=== PATIENT | female | born 1985 | race Caucasian/White ===

== ENCOUNTER 2016-11-10 13:47 | Emergency (ER) | payer MEDICAID ==
[2012-03-30 23:46] VITALS: BMI 30.1
== END 2016-11-10 17:22 | disposition home or self-care (01) ==
LOC: D.ER 13:47
DX: S39.012A Strain of muscle, fascia and tendon of lower back, initial encounter (principal); X58.XXXA Exposure to other specified factors, initial encounter; M54.31 Sciatica, right side; K21.9 Gastro-esophageal reflux disease without esophagitis

== ENCOUNTER 2017-05-29 09:08 | Emergency (ER) | payer MEDICAID ==
[2012-03-30 23:46] VITALS: BMI 30.1
== END 2017-05-29 09:52 | disposition home or self-care (01) ==
LOC: D.ER 09:08
DX: J01.90 Acute sinusitis, unspecified (principal); K21.9 Gastro-esophageal reflux disease without esophagitis

== ENCOUNTER 2018-06-18 20:32 | Emergency (ER) | payer MEDICAID ==
[~2018-06-18] VITALS: Ht 160 cm; Wt 94.5 kg
[2018-06-18 20:36] VITALS: Ht 160 cm; Wt 94.5 kg
[2018-06-18] MEDS ORDERED: ZPAK PO (21:58)
[2018-06-18] MEDS ORDERED: ALBUTEROL SULF8.5 GM INH (21:58)
[2018-06-18] MEDS ORDERED: TYLENOL W/CODEI1 TAB PO (21:58)
[2018-06-18 22:34] VITALS: BP 117/69
== END 2018-06-18 22:34 | disposition home or self-care (01) ==
LOC: D.ER 20:32
DX: J40 Bronchitis, not specified as acute or chronic (principal)

== ENCOUNTER 2018-11-19 21:15 | Emergency (ER) | payer MEDICAID ==
[~2018-11-19] VITALS: Ht 160 cm; Wt 86.4 kg
[~2018-11-19 21:15] MED LIST: ALBUTEROL SULF8.5 GM INH; TYLENOL W/CODEI1 TAB PO; ZPAK PO
[2018-11-19 21:22] VITALS: Ht 160 cm; Wt 86.4 kg
[2018-11-19 22:29] LABS: BASOPHILS 0.4 % (0-2); EOSINOPHILS 0.9 % (0-7); HEMATOCRIT 37.7 % (36.0-48.0); HEMOGLOBIN 12.8 g/dL (12-16); IMMATURE GRANULOCYTES 0.1 % (0-5); LYMPHOCYTES 16.5 % (15-50); MCV 85.3 fL (80.0-100.0); MEAN PLATELET VOLUME 11.7 fL (7.4-10.4); MONOCYTES 7.3 % (2-11); NEUTROPHILS 74.8 % (40-80); RBC 4.42 10x6/uL (4.00-5.40); RDW 12.8 % (11.5-14.5); WBC 6.7 10x3/uL (4.8-10.8)
[2018-11-19 22:43] LABS: PLATELET COUNT 202 10x3/uL (130-400)
[2018-11-19 22:46] LABS: APTT 25.7 SECONDS (22.8-39.4); INR 0.98 (0.85-1.17); PROTIME 12.5 SECONDS (11.6-15.0)
[2018-11-19 22:52] LABS: ALBUMIN 4.3 g/dL (3.4-5.0); ALKALINE PHOSPHATASE 64 U/L (46-116); ALT (SGPT) 45 U/L (10-68); BILIRUBIN - TOTAL 0.37 mg/dL (0.2-1.3); CALC OSMOLALITY 285 mosm/kg (275-300); CALCIUM 9.5 mg/dL (8.5-10.1); CARBON DIOXIDE 27.5 mmol/L (21.0-32.0); CHLORIDE - SERUM 105 mmol/L (98-107); GLUCOSE 130 mg/dL (74-106); POTASSIUM - SERUM 3.5 mmol/L (3.5-5.1); PROTEIN - SERUM 7.7 g/dL (6.4-8.2); SODIUM 143 mmol/L (136-145); UREA NITROGEN 10 mg/dL (7-18); eGFR NON AFRICAN AMERICAN 67 mL/min (90-120)
[2018-11-19 23:04] LABS: CKMB 2.8 U/L (0.0-3.6); MAGNESIUM - SERUM 1.6 mg/dL (1.8-2.4)
[2018-11-19 23:07] LABS: CREATINE KINASE 1190 UL (21-215); TROPONIN-I < 0.017 ng/mL (0.000-0.060)
[2018-11-20 01:57] VITALS: BP 109/79
== END 2018-11-20 01:55 | disposition home or self-care (01) ==
LOC: D.ER 21:15
PROVIDERS: Family Medicine
DX: R51 Headache (principal); R07.9 Chest pain, unspecified; R42 Dizziness and giddiness; R11.2 Nausea with vomiting, unspecified

== ENCOUNTER 2019-01-20 20:02 | Emergency (ER) | payer MEDICAID ==
[~2019-01-20] VITALS: Ht 160 cm; Wt 86.2 kg
[2019-01-20 20:08] VITALS: Ht 160 cm; Wt 86.2 kg
[2019-01-20] MEDS ORDERED: POLYSPORIN OINT15 G1 TOPICAL (22:15)
[2019-01-20] MEDS ORDERED: ULTRAM50 MG PO (22:15)
[2019-01-20] MEDS ORDERED: MOTRIN600 MG PO (22:15)
[2019-01-20 23:19] VITALS: BP 117/60
== END 2019-01-20 23:19 | disposition home or self-care (01) ==
LOC: D.ER 20:02
DX: T20.27XA Burn of second degree of neck, initial encounter (principal); T20.211A Burn of second degree of right ear [any part, except ear drum], initial encounter; X16.XXXA Contact with hot heating appliances, radiators and pipes, initial encounter; Y93.89 Activity, other specified; Y92.89 Other specified places as the place of occurrence of the external cause

== ENCOUNTER 2019-06-13 10:27 | Emergency (ER) | payer MEDICAID ==
[~2019-06-13] VITALS: Ht 160 cm; Wt 93.2 kg
[~2019-06-13 10:27] MED LIST changes: +MOTRIN600 MG PO; +POLYSPORIN OINT15 G1 TOPICAL; +ULTRAM50 MG PO
[2019-06-13 10:35] VITALS: Ht 160 cm; Wt 93.2 kg
[2019-06-13 11:13] LABS: HCG URINE NEGATIVE (NEGATIVE)
[2019-06-13 11:18] LABS: APPEARANCE CLEAR (CLEAR); COLOR YELLOW (YELLOW)
[2019-06-13 11:19] LABS: BILIRUBIN NEGATIVE (NEGATIVE); GLUCOSE NEGATIVE (NEGATIVE); KETONE NEGATIVE (NEGATIVE); NITRITE NEGATIVE (NEGATIVE); PROTEIN NEGATIVE (NEGATIVE); SPECIFIC GRAVITY 1.025 (1.005-1.020); UROBILINOGEN NORMAL (NORMAL)
[2019-06-13 11:44] LABS: CALC OSMOLALITY 284 mosm/kg (275-300); CALCIUM 9.4 mg/dL (8.5-10.1); CARBON DIOXIDE 29.7 mmol/L (21.0-32.0); CHLORIDE - SERUM 105 mmol/L (98-107); CREATININE - SERUM 0.9 mg/dL (0.6-1.3); GLUCOSE 123 mg/dL (74-106); POTASSIUM - SERUM 4.1 mmol/L (3.5-5.1); SODIUM 142 mmol/L (136-145); UREA NITROGEN 15 mg/dL (7-18); eGFR NON AFRICAN AMERICAN 75 mL/min (90-120)
[2019-06-13 11:51] LABS: ALBUMIN 4.3 g/dL (3.4-5.0); ALKALINE PHOSPHATASE 73 U/L (46-116); ALT (SGPT) 29 U/L (10-68); BILIRUBIN - TOTAL 0.37 mg/dL (0.2-1.3); PROTEIN - SERUM 8.3 g/dL (6.4-8.2)
[2019-06-13 12:07] LABS: BASOPHILS 0.5 % (0-2); EOSINOPHILS 2.1 % (0-7); HEMATOCRIT 42.7 % (36.0-48.0); HEMOGLOBIN 14.3 g/dL (12-16); IMMATURE GRANULOCYTES 0.2 % (0-5); LYMPHOCYTES 22.6 % (15-50); MCH 29.5 pg (26.0-34.0); MCHC 33.5 g/dL (31.0-37.0); MCV 88.2 fL (80.0-100.0); MEAN PLATELET VOLUME 11.6 fL (7.4-10.4); NEUTROPHILS 68.6 % (40-80); PLATELET COUNT 242 10x3/uL (130-400); RBC 4.84 10x6/uL (4.00-5.40); RDW 12.5 % (11.5-14.5); WBC 6.2 10x3/uL (4.8-10.8)
[2019-06-13] MEDS ORDERED: ZOFRAN ODT4 MG/UDTAB PO (13:06)
[2019-06-13 13:50] VITALS: BP 128/62
== END 2019-06-13 14:07 | disposition home or self-care (01) ==
LOC: D.ER 10:27
PROVIDERS: Emergency Medicine
DX: M54.9 Dorsalgia, unspecified (principal); R10.30 Lower abdominal pain, unspecified; R11.0 Nausea